=== PATIENT | male | born 1985 | race Caucasian/White ===

== ENCOUNTER 2019-11-13 20:08 | Emergency (ER) | payer BC, SELFPAY ==
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
[2019-11-13 20:22] VITALS: BP 129/84; PULSE 110; RESP 20; TEMP 36.7; O2SAT 99
[2019-11-13] MEDS: KETOROLAC (*BKC) 60 MG/2 ML VIAL IM (20:36)
--- NOTE | 2019-11-13 20:54 | PC.NURSE ---
Pt states he is unable to provide urine sample at this time.
== END 2019-11-13 21:25 | disposition home or self-care (01) ==
PROVIDERS: Emergency Provider Emergency Medicine; PCP Family Medicine
DX: S39.012A Strain of muscle, fascia and tendon of lower back, initial encounter (principal); S30.0XXA Contusion of lower back and pelvis, initial encounter; S50.812A Abrasion of left forearm, initial encounter; V28.4XXA Motorcycle driver injured in noncollision transport accident in traffic accident, initial encounter
CPT/HCPCS: 72131; 72192; 96372; 99283; 99284; J1885

== ENCOUNTER 2023-12-18 21:25 | Emergency (ER) | payer OTHER, SELFPAY ==
[2023-12-18 21:30] VITALS: BP 125/66; PULSE 139; RESP 20; TEMP 36.8; O2SAT 93
--- NOTE | 2023-12-18 21:44 | ED.WOUNDLAC ---
HPI - Wound/Laceration General Chief Complaint: Animal Bite Stated Complaint: HORNET STINGS Time Seen by Provider: 12/18/23 21:32 Source: patient Mode of arrival: ambulatory Limitations: no limitations History of Present Illness HPI narrative: this is a 38-year-old male who presents with multiple hornet bites and has an area of swelling and erythema on his right thigh area with no wheezing no shortness of breath no fever chills no nausea vomiting or abdominal pain. Onset (ago): hour(s) Extremity Location: Right: thigh ( insect bite) Context: accidental Related Data Home Medications Medication Instructions Recorded Confirmed apixaban 5 mg tablet (Eliquis) 5 mg PO DAILY 12/18/23 12/18/23 atorvastatin 80 mg tablet 80 mg PO DAILY 12/18/23 12/18/23 dofetilide 500 mcg capsule 500 mcg PO BID 12/18/23 12/18/23 ergocalciferol (vitamin D2) 1,250 1,250 mcg PO DAILY 12/18/23 12/18/23 mcg (50,000 unit) capsule fluticasone propionate 50 1 inh inhalation BID 12/18/23 12/18/23 mcg/actuation blister powder for inhalation folic acid 1 mg tablet 1 mg PO DAILY 12/18/23 12/18/23 furosemide 20 mg tablet 20 mg PO DAILY 12/18/23 12/18/23 liraglutide 0.6 mg/0.1 mL (18 mg/3 1.2 mg subcut DAILY 12/18/23 12/18/23 mL) subcutaneous pen injector (MixCommercetoza 2-Hima) metoprolol succinate 25 mg 25 mg PO DAILY 12/18/23 12/18/23 tablet,extended release 24 hr potassium chloride 20 mEq 20 meq PO BID 12/18/23 12/18/23 tablet,extended release(part/cryst) sacubitril 49 mg-valsartan 51 mg 1 tablet PO BID 12/18/23 12/18/23 tablet (Entresto) Allergies Allergy/AdvReac Type Severity Reaction Status Date / Time codeine Allergy Unknown Verified 11/13/19 20:29 Review of Systems Review of Systems: All systems reviewed & are unremarkable except as noted in HPI and below PMFSH Past Medical History Medical History Afib Social History Social History Smoking status: Never smoker Alcohol intake: current Alcohol use details: socially Substance use: never Living arrangements: with family 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 Exam Const: General: healthy appearing and no acute distress Nutritional Appearance: well nourished Orientation/consciousness: patient oriented x3 Limitations: no limitations Neck: Neck: normal visual inspection, no lymphadenopathy and no meningeal signs Chest: Chest palpation & inspection: normal inspection of the chest Resp: Effort & Inspection: normal respiratory effort Auscultation: clear to auscultation bilaterally Cardio: Rate: regular rate Rhythm: regular rhythm GI: GI Palp: Yes Soft to palpation Auscultation: normal bowel sounds Skin: General skin exam: normal color Wounds: wounds noted Neuro: General: patient oriented x3 and moves all extremities Course Course Emergency Course: patient received 80mg IM Depo-Medrol otherwise there is no other symptoms no audible wheezing no shortness of breath no nausea vomiting. Critical Care Time Critical Care Time Critical Care Time: No Discharge Plan Discharge Clinical Impression: Insect bite Patient Disposition: Home, Self-Care Condition: Stable Instructions: Antibiotic Form, Insect Bite or Sting (ED) Additional Instructions: advised to take medication as prescribed and follow up with primary if symptoms persist or worsen. Prescriptions: New prednisone 20 mg tablet 20 mg PO DAILY 5 Days Qty: 5 0RF No Action hydrocodone-acetaminophen 5-325 mg tablet 1 tablet PO Q6H PRN (Reason: pain) Qty: 20 0RF (DME) walker Misc See Rx Instructions .ROUTE .MEDSUPPLY Qty: 1 0RF Rx Instructions: As directed fluticasone propionate [Flovent Diskus] 50 mcg/actuation blister with device 1 inh INHALATION BID atorvastatin 80 mg tablet 80 mg PO DAILY potassium chloride 20 mEq
[2023-12-18] MEDS: methylPREDNISolone ACETATE 40 MG/ML VIAL 80 MG IM (21:48)
[2023-12-18 22:00] VITALS: BP 122/44; PULSE 138; RESP 20; O2SAT 93
== END 2023-12-18 22:30 | disposition home or self-care (01) ==
PROVIDERS: Emergency Provider Emergency Medicine; PCP Family Medicine
DX: T63.451A Toxic effect of venom of hornets, accidental (unintentional), initial encounter (principal); I48.91 Unspecified atrial fibrillation; Z79.01 Long term (current) use of anticoagulants; Z79.899 Other long term (current) drug therapy
CPT/HCPCS: 96372; 99283; J1010

== ENCOUNTER 2025-02-25 22:08 | Emergency (ER) | payer OTHER, SELFPAY ==
[2025-02-25] VITALS (14 sets, daily range): BP systolic 136–148; BP diastolic 65–80; PULSE 59–75; RESP 16–24; TEMP 36.2; O2SAT 94–100
--- OUTSIDE RECORDS SUMMARY | 2025-02-25 22:13 | XMS_ITS | Encounter Summary ---
Author Organization [facility] Address [address] [place] [address] Phone Care Team Providers Care Child Nutrition Manager Name Role Phone Galen Morales MD Primary Care Provider [phone] Encounter Details Date Type Department Care Team (Latest Contact Info) Description 07/12/2020 Orders Only [facility] Scanning, Provider Social History Tobacco Use Types Packs/Day Years Used Date Smoking Tobacco: Never Assessed Sex and Gender Information Value Date Recorded Sex Assigned at Not on file Legal Sex Male 3:11 PM CDT Gender Identity Not on file Sexual Orientation Not on file documented as of this encounter Plan of Treatment Not on file documented as of this encounter Procedures Procedure Name Priority Date/Time Associated Diagnosis Comments CARDIOLOGY DOCUMENT SCAN 07/11/2020 documented in this encounter Results * SCAN - CARDIOLOGY (07/11/2020) Anatomical Region Laterality Modality Other us Provider Scanning CV CARDIAC SERVICES PROCEDURES Edited Result - Final documented in this encounter Visit Diagnoses Not on filedocumented in this encounter Care Teams Child Nutrition Manager Relationship Specialty Start Date End Date Galen Morales MD [address] [facility] [place] [address] PCP - General Family Medicine 11/15/20 documented as of this encounter
--- OUTSIDE RECORDS SUMMARY | 2025-02-25 22:13 | XMS_ITS | Encounter Summary ---
Author Organization [facility] Address [address] [place] [address] Care Team Providers Care Window Installer Name Role Phone Galen Morales MD Primary Care Provider [phone] Imani Espitia MD Unavailable Joe Adair MD Unavailable [phone] Dorita Carter PA-C Unavailable [phone] Encounter Details Date Type Department Care Team (Latest Contact Info) Description 11/30/2023 Explorra Message Enc [facility] [address] [place] [address] [facility] followup call Social History Tobacco Use Types Packs/Day Years Used Date Smoking Tobacco: Never Smokeless Tobacco: Never Alcohol Use Standard Drinks/Week Comments Not Currently 194.7 (1 standard drink = 0.6 oz pure alcohol) [facility] Utilities Answer Date Recorded In the past 12 months has [facility] [employer], gas, oil, or water [employer] threatened to shut off services in your home? No 11/25/2023 Humiliation, Afraid, Rape, and Kick questionnair e Answer Date Recorded Within the last year, have y ou been afraid of your partner or ex-partner? No 11/25/2023 Within the last year, have y ou been humiliated or emotionally abused in other ways by your partner or ex-partner? No Within the last year, have y ou been kicked, hit, slapped, or otherwise physically hurt by your partner or ex-partner? No 11/25/2023 Within the last year, have y ou been raped or forced to have any kind of sexual activity by your partner or ex-partner? No 11/25/2023 Overall Financial Resource Strain (CARDIA) Answe r Date Recorded How hard is it for you to pa y for the very basics like food, housing, medical care, and heating? Not hard at all 11/25/2023 Hunger Vital Sign Answer Date Recorded Within the past 12 months, y ou worried that your food would run out before you got the money to buy more. Never true 11/25/19 24 Within the past 12 months, t he food you bought just didn't last and you didn't have money to get more. Never true 11/25/2023 PRAPARE - Transportation Answer Date Re corded In the past 12 months, has l ack of transportation kept you from medical appointments or from getting medications? No 11/12 In the past 12 months, has l ack of transportation kept you from meetings, work, or from getting things needed for daily living? No 11/25/2023 Housing Stability Vital Sign Answer Yuniel e Recorded In the last 12 months, was t here a time when you were not able to pay the mortgage or rent on time? No 11/25/2023 In the past 12 months, how m any times have you moved where you were living? 0 11/25/2023 At any time in the past 12 m [facility], were you homeless or living in a [facility] (including now)? No 11/25/2023 Sex and Gender Information Value Date Recorded Sex Assigned at Male 07/20/2024 1:07 PM TREE CLIMBER Legal Sex Male 4:30 PM CDT Gender Identity Not on file Sexual Orientation Not on file documented as of this encounter Functional Status * Are you deaf or do you have serious difficulty hearing Answer Date of Assessment Author Status No 11/25/2023 2:00 AM CDT Adriana Brown RN Active * Are you blind or do you have serious difficulty seeing, even when wearing glasses? Answer Date of Assessment Author Status No 11/25/2023 2:00 AM SKYLART Adriana Brown RN Active * Do you have serious difficulty walking or climbing stairs? Answer Date of Assessment Author Status Yes 11/25/2023 2:00 AM SKYLARAdriana Leslie RN Active * Do you have difficulty dressing or bathing? Answer Date of Assessment Author Status No 11/25/2023 2:00 AM Adriana Felix RN Active * Because of a physical, mental, or emotional condition, do you have difficulty doing errands alone such as visiting a doctor's office or shopping? Answer Date of Assessment Author Status No 11/25/2023 2:00 AM Adriana Felix RN Active documented as of this encounter Mental Status * Because of a physical, mental, or emotional condition, do you have serious difficulty concentrating, remembering, or making decisions? Answer Entry Date Author Status No 11/25/2023 2:00 AM Adriana Felix RN Active documented in this encounter Plan of Treatment Upcoming Encounters Date Type Department Care Team (Late st Contact Info) Description 04/18/2025 9:00 AM TREE CLIMBER Office Visit [facility] [address] [place] [phone] Imani Espitia MD [address] [place] [address] [phone] documented as of this encounter Visit Diagnoses Not on filedocumented in this encounter Care Teams Window Installer Relationship Specialty Start Date End Date Galen Morales MD [address] [place] [address] PCP - General FAMILY PRACTICE 05/20/20 Imani Espitia MD [address] [place] [address] [phone] Consulting Physician CARDIOVASCULAR DISEASE 06/21/20 Joe Adair MD [address] [place] [address] [phone] Consulting Physician CLINICAL CARDIAC ELECTROPHYSIOLOGY 11/29/23 Dorita Carter PA-C [address] [place] [id number] Referring Physician PHYSICIAN SEISMOGRAPH RECORDER 11/29/23 documented as of this encounter
--- OUTSIDE RECORDS SUMMARY | 2025-02-25 22:13 | XMS_ITS | Encounter Summary ---
Author Organization [facility] Address [address] [place] [address] Phone Care Team Providers Care Refrigerator Tester Name Role Phone Galen Morales MD Primary Care Provider [phone] Encounter Details Date Type Department Care Team (Latest Contact Info) Description 07/13/2020 Orders Only [facility] Scanning, Provider [...] Date/Time Associated Diagnosis Comments CARDIOLOGY DOCUMENT SCAN 07/13/2020 documented in this encounter Results * SCAN - CARDIOLOGY (07/13/2020) Anatomical Region Laterality Modality Other us Provider Scanning CV CARDIAC SERVICES PROCEDURES Final Result documented in this encounter Visit Diagnoses Not on filedocumented in this encounter Care Teams Refrigerator Tester Relationship Specialty Start Date End Date Galen Morales MD [address] [place] [address] [place] [id number] PCP - General Family Medicine 11/15/20 documented as of this encounter
--- OUTSIDE RECORDS SUMMARY | 2025-02-25 22:13 | XMS_ITS | Encounter Summary ---
Author Organization [facility] Address [address] [place] [address] Phone Care Team Providers Care Tuber Operator Name Role Phone Galen Morales MD Primary Care Provider [phone] Encounter Details Date Type Department Care Team (Latest Contact Info) Description 07/17/2020 Orders Only [facility] Scanning, Provider [...] Date/Time Associated Diagnosis Comments CARDIOLOGY DOCUMENT SCAN 07/17/2020 documented in this encounter Results * SCAN - CARDIOLOGY (07/17/2020) Anatomical Region Laterality Modality Other us Provider Scanning CV CARDIAC SERVICES PROCEDURES Final Result documented in this encounter Visit Diagnoses Not on filedocumented in this encounter Care Teams Tuber Operator Relationship Specialty Start Date End Date Galen Morales MD [address] [place] [address] [place] [id number] PCP - General Family Medicine 11/15/20 documented as of this encounter
--- OUTSIDE RECORDS SUMMARY | 2025-02-25 22:13 | XMS_ITS | Encounter Summary ---
Author Organization [facility] Address [facility] [place] [address] Care Team Providers Care Test Development Engineer Name Role Phone Galen Morales MD Primary Care Provider [phone] Imani Espitia MD Unavailable Joe Adair MD Unavailable [phone] Dorita Carter PA-C Unavailable [phone] Encounter Details Date Type Department Care Team (Late st Contact Info) Description 12/13/2024 Business Texter Message Enc [facility] ield [address] [place] [address] [facility] Provider Test results Social History Tobacco Use Types Packs/Day Years Used Date Smoking Tobacco: Never Smokeless Tobacco: Never Alcohol Use Standard Drinks/Week Comments Not Currently 194.7 (1 standard drink = 0.6 oz pure alcohol) [facility] Utilities Answer Date Recorded In the past 12 months has [facility] [employer] gas, oil, or water [employer] threatened to shut off services in your [...] any time in the past 12 m [facility], were you homeless or living in a halfway (including now)? No 11/25/2023 Sex and Gender Information Value Date Recorded Sex Assigned at Male 07/20/2024 1:07 PM TIN RECOVERY WORKER Legal Sex Male 4:30 PM CDT Gender Identity Not on file Sexual Orientation Not on file documented as of this encounter Functional Status * Are you deaf or do you have serious difficulty hearing Answer Date of Assessment Author Status No 11/25/2023 2:00 AM SKYLART Adriana Brown RN Active * Are you blind or do you have serious difficulty seeing, even when wearing glasses? Answer Date of Assessment Author Status No 11/25/2023 2:00 AM SKYLART Adriana Brown RN Active * Do you have serious difficulty walking or climbing stairs? Answer Date of Assessment Author Status Yes 11/25/2023 2:00 AM Adriana Felix RN Active * Do you have difficulty [...] st Contact Info) Description 04/18/2025 9:00 AM TIN RECOVERY WORKER Office Visit [facility] [address] [place] [phone] Imani Espitia MD [address] [place] [address] [phone] documented as of this encounter Visit Diagnoses Not on filedocumented in this encounter Care Teams Test Development Engineer Relationship Specialty Start Date End Date Galen Morales MD [address] [place] [address] PCP - General FAMILY PRACTICE 05/20/20 Imani Espitia MD [address] [place] [address] [phone] Consulting Physician CARDIOVASCULAR DISEASE 06/21/20 Joe Adair MD [address] [place] [address] [phone] Consulting Physician CLINICAL CARDIAC ELECTROPHYSIOLOGY 11/29/23 Dorita Carter PA-C [address] [place] [phone] Referring Physician PHYSICIAN STUDENT LIFE ADVISOR 11/29/23 documented as of this encounter
--- OUTSIDE RECORDS SUMMARY | 2025-02-25 22:13 | XMS_ITS | Encounter Summary ---
Author Organization [facility] Address [address] [place] [address] Phone Care Team Providers Care Senior National Account Manager Name Role Phone Galen Morales MD Primary Care Provider [phone] Encounter Details Date Type Department Care Team (Latest Contact Info) Description 07/16/2020 Orders Only [facility] Scanning, Provider [...] Date/Time Associated Diagnosis Comments CARDIOLOGY DOCUMENT SCAN 07/16/2020 documented in this encounter Results * SCAN - CARDIOLOGY (07/16/2020) Anatomical Region Laterality Modality Other us Provider Scanning CV CARDIAC SERVICES PROCEDURES Edited Result - Final documented in this encounter Visit Diagnoses Not on filedocumented in this encounter Care Teams Senior National Account Manager Relationship Specialty Start Date End Date Galen Morales MD [address] [facility] [place] [address] PCP - General Family Medicine 11/15/20 documented as of this encounter
--- OUTSIDE RECORDS SUMMARY | 2025-02-25 22:13 | XMS_ITS | Encounter Summary ---
Author Organization [facility] Address [facility] [place] [address] Care Team Providers Care Java Grails Developer Name Role Phone Galen Morales MD Primary Care Provider Imani Espitia MD Unavailable Imani Espitia MD Unavailable Joe Adair MD Unavailable [phone] Dorita Carter PA-C Unavailable [phone] Encounter Details Date Type Department Care Team (Late st Contact Info) Description 11/19/2018 Abstract SFL CONVERSION [address] [place], [place] [id number] , Generic ConversionMD Social History Tobacco Use Types Packs/Day Years Used Date Smoking Tobacco: Never Assessed Sex and Gender Information Value Date Recorded Sex Assigned at Male 07/20/2024 1:07 PM GRIP WRAPPER Legal Sex Male 4:30 PM CDT Gender Identity Not on file Sexual Orientation Not on file documented as of this encounter Plan of Treatment Upcoming Encounters Date Type Department Care Team (Late st Contact Info) Description 04/18/2025 9:00 AM GRIP WRAPPER Office Visit [facility] [address] [place] [address] Imani Espitia MD [address] [place] [address] documented as of this encounter Visit Diagnoses Not on filedocumented in this encounter Additional Health Concerns Infection Onset Date Last Indicated Resolved Time COVID-19 Rule Out 07/06/2020 07/06/2020 07/07/2020 3:02 PM GRIP WRAPPER documented as of this encounter Care Teams Java Grails Developer Relationship Specialty Start Date End Date Galen Morales MD [address] [place] [address] PCP - General FAMILY PRACTICE 05/20/20 Imani Espitia MD [address] [place] [address] Consulting Physician CARDIOVASCULAR DISEASE 05/23/20 1 07/24/19 Imani Espitia MD [address] [place] [address] Consulting Physician CARDIOVASCULAR DISEASE 06/21/20 Joe Adair MD [address] [place] [address] Consulting Physician CLINICAL CARDIAC ELECTROPHYSIOLOGY 11/29/23 Dorita Carter PA-C [address] [place], [place] [phone] Referring Physician PHYSICIAN INFRASTRUCTURE SOLUTIONS ARCHITECT 11/29/23 documented as of this encounter
--- OUTSIDE RECORDS SUMMARY | 2025-02-25 22:13 | XMS_ITS | Encounter Summary ---
Author Organization [facility] Address [address] [place] [address] Phone Care Team Providers Care Electronics Scale Tester Name Role Phone Galen Morales MD Primary Care Provider [phone] Encounter Details Date Type Department Care Team (Latest Contact Info) Description 08/19/2020 Orders Only [facility] Scanning, Provider [...] Date/Time Associated Diagnosis Comments CARDIOLOGY DOCUMENT SCAN 08/19/2020 documented in this encounter Results * SCAN - CARDIOLOGY (08/19/2020) Anatomical Region Laterality Modality Other us Provider Scanning CV CARDIAC SERVICES PROCEDURES Final Result documented in this encounter Visit Diagnoses Not on filedocumented in this encounter Care Teams Electronics Scale Tester Relationship Specialty Start Date End Date Galen Morales MD [address] [place] [address] [place] [address] PCP - General Family Medicine 11/15/20 documented as of this encounter
--- OUTSIDE RECORDS SUMMARY | 2025-02-25 22:13 | XMS_ITS | Clinical Summary ---
Author Organization [facility] [employer] Address [address] [place] [address] Care Team Providers Care Hospital Secretary Name Role Phone Galen Morales MD Primary Care Provider Source Comments [facility] [employer],non-owned Affiliates and Associated Physician Practices is amultiple site organization consisting of ambulatory clinics and hospital sitesin [place], [place], [place] and [place]. This disclosure is being madepursuant to the Care Everywhere program and may not contain all information available regarding this patient. Last updated 18.[facility] [employer] Allergies No known active allergies Medications * Be aware that medications may not be up to date on this document. Alwaysverify current medications with the patient. acetaminophen (Tylenol) 325 MG tabletIndicati ons:Pain Take 2 (two) tablets by mouth every 4 hours as needed Maximum allowable Acetaminophen amount = 4 Grams (4000 mg) / 24 hours. Reasons: Pain 4 Active apixaban (Eliquis) 5 MG tablet Take 1 (one) tablet by mouth 2 times daily 30 tablet 4 Active traZODone (Desyrel) 50 MG tablet Take 1 (one) tablet by mouth at bedtime 30 tablet 4 Active dulaglutide (Trulicity) 3 MG/0.5ML injection Inject 3 (three) mg subcutaneously every 7 days for 30 days 2 mL 4 Active empagliflozin (Jardiance) 10 MG tablet Take 1 (one) tablet by mouth once daily 30 tablet 4 Active atorvastatin (Lipitor) 80 MG tablet Take 1 (one) tablet by mouth at bedtime 30 tablet 4 Active ARIPiprazole (Abilify) 15 MG tablet Take 1 (one) tablet by mouth at bedtime 30 tablet 4 Active metoprolol succinate XL 24hr (Toprol XL) 50 MG tablet Take 1 (one) tablet by mouth once daily 30 tablet 4 Active sacubitril-alison sartan (Entresto) 49-51 MG tablet Take 1 (one) tablet by mouth 2 times daily 60 tablet 4 Active furosemide (Lasix) 40 MG tablet Take 1 (one) tablet by mouth 2 times daily 60 tablet 4 Active folic acid (Folvite) 1 MG tablet Take 1 (one) tablet by mouth once daily 30 tablet 4 Active thiamine (Vitamin B-1) 100 MG tablet Take 1 (one) tablet by mouth once daily 30 tablet 4 Active Active Problems Problem Noted Date Diagnosed Date Atrial fibrillation, rapid 10/22/2023 Social History Tobacco Use Types Packs/Day Years Used Date Smoking Tobacco: Never Assessed Sex and Gender Information Value Date Recorded Sex Assigned at Not on file Legal Sex Male 11:21 AM CDT Gender Identity Not on file Sexual Orientation Not on file Last Filed Vital Signs Vital Sign Reading Time Taken Comments Blood Pressure 106/67 10/26/2023 11:10 AM CDT Pulse 130 10/26/2023 12:53 PM CDT pt assessed while walking Temperature 36.7 C (98.1 F) 10/26/2023 11:10 AM CDT Respiratory Rate 18 10/26/2023 11:1 0 AM CDT Oxygen Saturation 97% 10/26/2023 12: 53 PM CDT Inhaled Oxygen Concentration - - Weight 239 kg (527 lb) 10/25/2023 11:06 AM CDT Height 188 cm (6' 2) 10/25/2023 11:06 AM CDT Body Mass Index 67.66 10/25/2023 11:06 AM CDT Plan of Treatment Health Maintenance Due Date Last Done Comments HIV SCREENING 02/15/1999 HEPATITIS C SCREENING 02/11/2002 DTAP/TDAP/TD VACCINES (1 - Tdap) 02/15/2003 HEPATITIS B VACCINE (1 of 3 - 19+ 3-dose series) 02/15/2003 HPV VACCINE (1 - 3-dose SCDM series) 02/15/2011 DEPRESSION SCREENING 06/14/2024 COVID-19 VACCINE (1 2023-2 5 season) 2025 INFLUENZA VACCINE (#1) 2025 ZOSTER VACCINE (1 of 2) 02/15/2034 HIB VACCINE Aged Out No longer eligi ble based on patient's age to complete this topic MENINGOCOCCAL (Group B) VACC INE SHARED DECISION-MAKING Aged Out No longer eligibl e based on patient's age to complete this topic MENINGOCOCCAL GROUPS A/C/Y/W VACCINE Aged Out No longer eligible b ased on patient's age to complete this topic PNEUMOCOCCAL VACCINE Aged Out No long er eligible based on patient's age to complete this topic Insurance [facility] Advance Directives * Full Code (Latest Code Status on File) Date Activated Date Inactivated Comments 10/22/2023 2:52 PM 10/26/2023 3:27 PM Care Teams Hospital Secretary Relationship Specialty Start Date End Date Galen Morales MD [address] [place] [address] PCP - General Family Medicine 10/26/23
--- OUTSIDE RECORDS SUMMARY | 2025-02-25 22:13 | XMS_ITS | Encounter Summary ---
Author Organization [facility] Address [address] [place] [address] Phone Care Team Providers Care Fence Repairman Name Role Phone Galen Morales MD Primary Care Provider [phone] Encounter Details Date Type Department Care Team (Latest Contact Info) Description 07/11/2020 Orders Only [facility] Scanning, Provider [...] Procedure Name Priority Date/Time Associated Diagnosis Comments SCAN - RADIOLOGY/IMAGING 07/11/2020 documented in this encounter Results * SCAN - RADIOLOGY/IMAGING (07/11/2020) Anatomical Region Laterality Modality Other us Provider Scanning Final Result documented in this encounter Visit Diagnoses Not on filedocumented in this encounter Care Teams Fence Repairman Relationship Specialty Start Date End Date Galen Morales MD [address] [place] [address] [place] [address] PCP - General Family Medicine 11/15/20 documented as of this encounter
--- OUTSIDE RECORDS SUMMARY | 2025-02-25 22:13 | XMS_ITS | Encounter Summary ---
Author Organization [facility] Address [address] [place] [address] Phone Care Team Providers Care Crude Unit Operator Name Role Phone Galen Morales MD Primary Care Provider [phone] Encounter Details Date Type Department Care Team (Latest Contact Info) Description 07/23/2020 Orders Only [facility] Scanning, Provider [...] Priority Date/Time Associated Diagnosis Comments SCAN - LABS 07/23/2020 CARDIOLOGY DOCUMENT SCAN 07/23/2020 documented in this encounter Results * SCAN - LABS (07/23/2020) us Provider Scanning Final Result * SCAN - CARDIOLOGY (07/23/2020) Anatomical Region Laterality Modality Other us Provider Scanning CV CARDIAC SERVICES PROCEDURES Final Result documented in this encounter Visit Diagnoses Not on filedocumented in this encounter Care Teams Crude Unit Operator Relationship Specialty Start Date End Date Galen Morales MD [address] [facility] [place] [address] PCP - General Family Medicine 11/15/20 documented as of this encounter
--- OUTSIDE RECORDS SUMMARY | 2025-02-25 22:13 | XMS_ITS | Encounter Summary ---
Author Organization [facility] Address [address] [place] [address] Phone Care Team Providers Care Lift Team Technician Name Role Phone Galen Morales MD Primary Care Provider [phone] Encounter Details Date Type Department Care Team (Latest Contact Info) Description 07/14/2020 Orders Only [facility] Scanning, Provider [...] Date/Time Associated Diagnosis Comments CARDIOLOGY DOCUMENT SCAN 07/14/2020 documented in this encounter Results * SCAN - CARDIOLOGY (07/14/2020) Anatomical Region Laterality Modality Other us Provider Scanning CV CARDIAC SERVICES PROCEDURES Final Result documented in this encounter Visit Diagnoses Not on filedocumented in this encounter Care Teams Lift Team Technician Relationship Specialty Start Date End Date Galen Morales MD [address] [place] [address] [place] [address] PCP - General Family Medicine 11/15/20 documented as of this encounter
--- OUTSIDE RECORDS SUMMARY | 2025-02-25 22:13 | XMS_ITS | Encounter Summary ---
Author Organization [facility] Address [facility] [place] [address] Care Team Providers Care Band Machine Operator Name Role Phone Galen Morales MD Primary Care Provider [phone] Imani Espitia MD Unavailable Joe Adair MD Unavailable [phone] Dorita Carter PA-C Unavailable [phone] Encounter Details Date Type Department Care Team (Late st Contact Info) Description 11/30/2023 Hospital Follow-up Call [facility] [address] [place] [address] Mady Morales RN Social History Tobacco Use Types Packs/Day Years Used Date Smoking Tobacco: Never Smokeless Tobacco: Never Alcohol Use Standard Drinks/Week Comments Not Currently 194.7 (1 standard drink = 0.6 oz pure alcohol) [facility] Utilities Answer Date Recorded In the past 12 months has [facility] [employer], gas, oil, or water [employer] threatened to shut off services in your [...] any time in the past 12 m [facility], were you homeless or living in a long term (including now)? No 11/25/2023 Sex and Gender Information Value Date Recorded Sex Assigned at Male 07/20/2024 1:07 PM BESSEMER CONVERTER BLOWER Legal Sex Male 4:30 PM CDT Gender [...] Assessment Author Status Yes 11/25/2023 2:00 AM SKYLART Adriana Brown RN Active * Do you have difficulty [...] st Contact Info) Description 04/18/2025 9:00 AM BESSEMER CONVERTER BLOWER Office Visit [facility] [address] [place] [address] Imani Espitia MD [address] [place] [address] documented as of this encounter Visit Diagnoses Not on filedocumented in this encounter Care Teams Band Machine Operator Relationship Specialty Start Date End Date Galen Morales MD [address] [place] [phone] PCP - General FAMILY PRACTICE 05/20/20 Imani Espitia MD [address] [place] [address] Consulting Physician CARDIOVASCULAR DISEASE 06/21/20 Joe Adair MD [address] [place] [phone] Consulting Physician CLINICAL CARDIAC ELECTROPHYSIOLOGY 11/29/23 Dorita Carter PA-C [address] [place] [address] Referring Physician PHYSICIAN SENIOR AIR DIRECTOR 11/29/23 documented as of this encounter
--- OUTSIDE RECORDS SUMMARY | 2025-02-25 22:13 | XMS_ITS | Encounter Summary ---
Author Organization [facility] Address [facility] [place] [address] Care Team Providers Care Operations Team Leader Name Role Phone Galen Morales MD Primary Care Provider [phone] Imani Espitia MD Unavailable Joe Adair MD Unavailable [phone] Dorita Carter PA-C Unavailable [phone] Reason for Visit * Reason Onset Date Comments Holter Monitor 12/24/2023 Encounter Details Date Type Department Care Team (Late st Contact Info) Description 12/24/2023 Telephone [facility] [address] [place] [address] Joe Adair MD [address] [place] [address] Holter Monitor Social History Tobacco Use Types Packs/Day Years Used Date Smoking Tobacco: Never Smokeless Tobacco: Never Alcohol Use Standard Drinks/Week Comments Not Currently 194.7 (1 standard drink = 0.6 oz pure alcohol) [facility] Utilities Answer Date Recorded In the past 12 months has [facility] electric, gas, oil, or water company threatened to shut off services in your [...] any time in the past 12 m [facility], were you homeless or living in a snf (including now)? No 11/25/2023 Sex and Gender Information Value Date Recorded Sex Assigned at Male 07/20/2024 1:07 PM INDUSTRIAL SERVICE TECHNICIAN Legal Sex Male 4:30 PM CDT Gender [...] AM CDT Adriana Brown RN Active * Do you have serious difficulty walking or climbing stairs? Answer Date of Assessment Author Status Yes 11/25/2023 2:00 AM CDT Adriana Brown RN Active * Do you have difficulty dressing or bathing? Answer Date of Assessment Author Status No 11/25/2023 2:00 AM SKYLART Adriana Brown RN Active * Because of a physical, mental, or emotional condition, do you have difficulty doing errands alone such as visiting a doctor's office or shopping? Answer Date of Assessment Author Status No 11/25/2023 2:00 AM CDT Adriana Brown RN Active documented as of this encounter Mental Status * Because of a physical, mental, or emotional condition, do you have serious difficulty concentrating, remembering, or making decisions? Answer Entry Date Author Status No 11/25/2023 2:00 AM Adriana Felix RN Active documented in this encounter Progress Notes * Shawn Mcphersonician - 12/24/2023 12:14 PM CDT Images from the original note were not included. [employer] alerted us to two different events for the patient. Patient had a run of Atrial/ supraventricular tachycardia and a run of Ventricular tachycardia. No symptoms reported for either event. documented in this encounter Plan of Treatment Upcoming Encounters Date Type Department Care Team (Late st Contact Info) Description 04/18/2025 9:00 AM INDUSTRIAL SERVICE TECHNICIAN Office Visit [facility] [address] [place] [address] Imani Espitia MD [address] [place] [address] documented as of this encounter Visit Diagnoses Not on filedocumented in this encounter Care Teams Operations Team Leader Relationship Specialty Start Date End Date Galen Morales MD [address] [place] [phone] PCP - General FAMILY PRACTICE 05/20/20 Imani Espitia MD [address] [place], [place] [phone] Consulting Physician CARDIOVASCULAR DISEASE 06/21/20 Joe Adair MD [address] [place] [address] Consulting Physician CLINICAL CARDIAC ELECTROPHYSIOLOGY 11/29/23 Dorita Carter PA-C [address] [place], [place] [address] Referring Physician PHYSICIAN DRAWBRIDGE OPERATOR 11/29/23 documented as of this encounter
--- OUTSIDE RECORDS SUMMARY | 2025-02-25 22:13 | XMS_ITS | Clinical Summary ---
Author Organization [facility] Address [address] [place] [address] Care Team Providers Care Vice Chairman Name Role Phone Galen Morales MD Primary Care Provider [phone] Imani Espitia MD Unavailable Joe Adair MD Unavailable [phone] Dorita Carter PA-C Unavailable [phone] Allergies Active Allergy Reactions Criticality Noted Date Comments Shadi Siu High 05/20/2020 Liraglutide Other (see comment) 12/30/2023 Made my heart race Medications ENTRESTO 49-51 MG tablet Take 1 tablet by mouth 2 (two) times daily. 3 Active atorvastatin (LIPITOR) 80 MG tablet Take 1 tablet (80 mg total) by mouth nightly at bedtime. 3 Active folic acid (FOLVITE) 1 MG tablet Take 1 tablet (1 mg total) by mouth daily. 4 Active vitamin D2, ergocalciferol, (DRISDOL) 1.25 mg capsule Take 1 capsule (1.25 mg total) by mouth every 7 days. Takes on Tuesdays Active vitamin B-12 (CYANOCOBALAMIN) (CYANOCOBALAMIN) 1000 mcg tablet Take 1 tablet (1,000 mcg total) by mouth daily. Active furosemide (LASIX) 20 MG tablet Take 3 tablets (60 mg total) by mouth 2 (two) times daily. 90 tablet 1 4 Active potassium chloride CR (KLOR-CON M) 20 MEQ tablet Take 1 tablet (20 mEq total) by mouth 2 (two) times daily. 60 tablet 1 4 Active Torsemide 40 MG Tab Take 160 mg by mouth 2 (two) times a day. Active naloxone (NARCAN) 4 MG/0.1ML nasal spray CALL 911. ADMINISTER A SINGLE SPRAY INTRANASALLY INTO ONE NOSTRIL UPON SIGNS OF OPIOID OVERDOSE. MAY REPEAT AFTER 3 MINUTES IF NO RESPONSE. 4 Active meloxicam (MOBIC) 15 MG tablet TAKE 1 TABLET BY MOUTH ONCE DAILY WITH FOOD FOR BACK PAIN 4 Active hydrOXYzine (VISTARIL) 25 MG capsule TAKE 1 TO 2 CAPSULES BY MOUTH EVERY 8 HOURS NEEDED FOR ANXIETY MAY CAUSE DROWSINESS 4 Active albuterol sulfate HFA 108 (90 Base) MCG/ACT inhaler INHALE 2 PUFFS BY MOUTH EVERY 4 TO 6 HOURS NEEDED FOR COUGH, SHORTNESS OF BREATH OR WHEEZING 4 Active HYDROcodone-acet aminophen (NORCO) 10-325 MG tablet Take 1 tablet by mouth every 12 (twelve) hours as needed. 4 Active apixaban (ELIQUIS) 5 MG tabletIndication s:Persistent atrial fibrillation (CMS/HCC HHS/HCC),Atrial flutter, unspecified type (CMS/HCC HHS/HCC) Take 1 tablet (5 mg total) by mouth 2 (two) times daily. 60 tablet 11 4 Active metFORMIN ER (GLUCOPHAGE-XR) 500 MG 24 hr tablet TAKE 1 TABLET BY MOUTH ONCE DAILY BEFORE BREAKFAST FOR ONE MONTH, THEN BEFORE BREAKFAST AND SUPPER. 4 Active MOUNJARO 12.5 MG/0.5ML injection 4 Active metoprolol succinate ER (TOPROL-XL) 100 MG 24 hr tablet Take 1 tablet by mouth twice daily 60 tablet 11 5 Active SYMBICORT 160-4.5 MCG/ACT inhaler Inhale into the lungs every 12 (twelve) hours. 5 Active dofetilide (TIKOSYN) 500 MCG Cap capsule TAKE 1 CAPSULE BY MOUTH EVERY 12 HOURS 180 capsule 1 5 Active Active Problems Problem Noted Date Diagnosed Date Chronic anticoagulation 11/08/2024 Chronic hip pain, bilateral 09/18/2024 Lymphedema 03/16/2024 Atrial flutter, unspecified type ([facility]) 01/26/2024 HFrEF (heart failure with re duced ejection fraction) ([facility]) 04/11/2021 Obstructive sleep apnea syndrome 07/22/2020 History of alcoholism ([facility]) 07/22/19 21 Cardiomyopathy ([facility]) 07/16/2020 Orthopnea 07/16/2020 Edema 07/16/2020 Systolic heart failure ([facility]) 021 Moderate left ventricular systolic dysfunction 1 07/22/2019 Cardiac LV ejection fraction of 40-49% 0 Persistent atrial fibrillation ([facility]) 05/20/2020 Positive urine drug screen 05/20/2020 Morbid obesity 05/20/2020 Elevated brain natriuretic peptide (BNP) level 1 07/21/2019 Atrial fibrillation with rap id ventricular response ([facility]) 05/20/2020 Chronic alcohol use Resolved Problems Problem Noted Date Diagnosed Date Resolved Date A-fib ([facility]) 11/24/202310/13 Encounters Date Type Department Care Team Description 12/26/2024 Telephone [facility] [address] [place] [address] Joe Adair MD Medication 12/13/2024 My[facility]arm[facility]la Message Enc [facility] [address] [place] [address] [facility] Provider Test results 12/11/2024 10:00 AM CDT - 12/11/2024 11:59 PM CDT Hospital Encounter [facility] [address] [place] [address] Imani Espitia MD Discharge Disposition: Home or Self Care (Routine Discharge) 12/11/2024 Travel from Last 3 Months Family History Medical History Relation Comments Heart Disease Mother Heart Disease Paternal Grandfather Relation Status Comments Mother Paternal Grandfather Social History Tobacco Use Types Packs/Day Years Used Date Smoking Tobacco: Never Smokeless Tobacco: Never Tobacco Cessation:Counseling Given: Not Answered Alcohol Use Standard Drinks/Week Comments Not Currently 194.7 (1 standard drink = 0.6 oz pure alcohol) [facility] Utilities Answer Date Recorded In the past 12 months has th e electric, gas, oil, or water company threatened [...] any time in the past 12 m [facility], were you homeless or living in a jail (including now)? 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 Legal Sex Male 4:30 PM CDT Gender Identity Not on file Sexual Orientation Not on file Last Filed Vital Signs Vital Sign Reading Time Taken Comments Blood Pressure 130/78 11/08/2024 11:05 AM CDT Pulse 82 11/08/2024 11:05 AM CDT Temperature 36.8 C (98.2 F) 11/28/2023 12:14 PM CDT Respiratory Rate 18 11/08/2024 11:0 5 AM CDT Oxygen Saturation 96% 11/08/2024 11: 05 AM CDT Inhaled Oxygen Concentration - - Weight 218.7 kg (482 lb 3.2 oz) 025 11:05 AM CDT Height 188 cm (6' 2) 11/08/2024 11:05 AM CDT Body Mass Index 61.91 11/08/2024 11:05 AM CDT Plan of Treatment Upcoming Encounters Date Type Department Care Team (Late st Contact Info) Description 04/18/2025 9:00 AM ENVIRONMENTAL MANAGEMENT SPECIALIST Office Visit [facility] [place] [id number] Imani Espitia MD [address] [place] [address] Health Maintenance Due Date Last Done Comments Annual Physical 02/15/1987 Hepatitis C 02/15/2002 HPV Vaccines (1 - 3-dose SCD M series) 02/15/2011 Hepatitis B Vaccines (2 of 3 - Hep B Twinrix 3-dose series) 09/17/2024 08/20/2024 COVID-19 Vaccine (1 - 2023-2 5 season) 2025 DTaP, Tdap and Td Vaccines ( 2 - Td or Tdap) 08/13/2034 08/13/2024 Pneumococcal Vaccine: Pediat rics (0 to 5 Years) and At-Risk Patients (6 to 49 Years) Completed 08/13/2024 Meningococcal B Vaccine Aged Out No l onger eligible based on patient's age to complete this topic Meningococcal Vaccine Aged Out No teresa nandini eligible based on patient's age to complete this topic RSV Immunizations Under 20 Months Aged Out No longer eligible based on patient's age to complete this topic Procedures Procedure Name Priority Date/Time Associated Diagnosis Comments USE ECHOCARDIOGRAM Routine 12/11/2024 10 :55 AM CDT Persistent atrial fibrillation ([facility]HCC [facility]) from Last 3 Months Results * USE ECHOCARDIOGRAM (12/11/2024 10:55 AM CDT) Anatomical Region Laterality Modality Cardiac Ultrasound 12/11/2024 10:1 4 AM CDT Narrative 12/13/2024 8:49 AM CDT Echocardiography Report Pat.Name: Chandler Ordoñez Pat.ID: [id number] .Date: 12/11/2024 Refer.MD: Rere, [facility] Exam Time: 10:14:00 AM Study Type:[facility] Height: 74 in Weight: 480 lb BSA: 3.15 m2 Age: 9 1985,39Y Sex: M Sonogrphr: Nelida Pat. Stat.:Outpatient Reason for Study:Persistent atrial fibrillation, MR Procedures: Study performed at [facility], [place], [place] and interpreted by [facility]. 2D, M-mode, Doppler, Color Flow, Myocardial contrast was used to enhance endocardial definition. ++++++++++++++++++++++++++++++++++++ SUMMARY: ++++++++++++++++++++++++++++++++++++ Technically difficult study. The left ventricular size is normal. Estimated left ventricular ejection fraction is 50-55%. Wall motion appears normal in all segments. The right ventricular size is mild to moderately enlarged. Right ventricular systolic function is not assessable. Valves not well visualized. No significant valvular heart disease by spectral analysis. ++++++++++++++++++++++++++++++++++++ FINDINGS: ++++++++++++++++++++++++++++++++++++ LV: The left ventricular size is normal. The left ventricular systolic function is normal. Estimated left ventricular ejection fraction is 50-55%. There is no left ventricular hypertrophy. WM: Wall motion appears normal in all segments. RV: The right ventricular size is mild to moderately enlarged. Right ventricular systolic function is not assessable. The right ventricle not adequately visualized in all views. LA: The left atrial size is moderately enlarged. RA: Right atrial size is not assessable. SUSANA: No evidence of pericardial effusion. AO: Aortic root is mildly dilated. The sinus of Valsalva measures 3.6cm. PA: Unable to reliably quantitate pulmonary systolic pressure. SVn: Inferior vena cava is small. Other: Technically difficult exam due to body habitus. Transesophageal study may be indicated for further evaluation. AV: No evidence of aortic valve stenosis. No evidence of aortic regurgitation. The aortic valve not well visualized. MV: No evidence of significant mitral regurgitation. The mitral valve is not well visualized. PV: Pulmonic valve not well visualized. TV: The tricuspid valve is not well visualized. <Electronic Signature> 12/13/2024 08:49 AM Imani Espitia M.D. Procedure Note Imani Espitia MD - 12/13/2024 Echocardiography Report Pat.Name: Chandler Ordoñez Pat.ID: [id number] .Date: 12/11/2024 Refer.MD: Rere, [facility] Exam Time: 10:14:00 AM Study Type:[facility] Height: 74 in Weight: 480 lb BSA: 3.15 m2 Age: 9 1985,39Y Sex: M Sonogrphr: Sf Pat. Stat.:Outpatient Reason for Study:Persistent atrial fibrillation, MR Procedures: Study performed at [facility], [place], [place] and interpreted by [facility]. 2D, M-mode, Doppler, Color Flow, Myocardial contrast was used to enhance endocardial definition. ++++++++++++++++++++++++++++++++++++ SUMMARY: ++++++++++++++++++++++++++++++++++++ Technically difficult study. The left ventricular size is normal. Estimated left ventricular ejection fraction is 50-55%. Wall motion appears normal in all segments. The right ventricular size is mild to moderately enlarged. Right ventricular systolic function is not assessable. Valves not well visualized. No significant valvular heart disease by spectral analysis. ++++++++++++++++++++++++++++++++++++ FINDINGS: ++++++++++++++++++++++++++++++++++++ LV: The left ventricular size is normal. The left ventricular systolic function is normal. Estimated left ventricular ejection fraction is 50-55%. There is no left ventricular hypertrophy. WM: Wall motion appears normal in all segments. RV: The right ventricular size is mild to moderately enlarged. Right ventricular systolic function is not assessable. The right ventricle not adequately visualized in all views. LA: The left atrial size is moderately enlarged. RA: Right atrial size is not assessable. SUSANA: No evidence of pericardial effusion. AO: Aortic root is mildly dilated. The sinus of Valsalva measures 3.6cm. PA: Unable to reliably quantitate pulmonary systolic pressure. SVn: Inferior vena cava is small. Other: Technically difficult exam due to body habitus. Transesophageal study may be indicated for further evaluation. AV: No evidence of aortic valve stenosis. No evidence of aortic regurgitation. The aortic valve not well visualized. MV: No evidence of significant mitral regurgitation. The mitral valve is not well visualized. PV: Pulmonic valve not well visualized. TV: The tricuspid valve is not well visualized. <Electronic Signature> 12/13/2024 08:49 AM Imani Espitia M.D. Imani Espitia MD ECHO Final Result from Last 3 Months Insurance JOSE Advance Directives * Full Code (Latest Code Status on File) Date Activated Date Inactivated Comments 11/24/2023 6:03 PM 11/28/2023 3:16 PM * Full Code Date Activated Date Inactivated Comments 05/20/2020 11:14 AM 05/23/2020 3:14 PM Care Teams Vice Chairman Relationship Specialty Start Date End Date Galen Morales MD [address] [facility] [place] [address] PCP - General FAMILY PRACTICE 05/20/20 Imani Espitia MD [address] [place], [place] [phone] Consulting Physician CARDIOVASCULAR DISEASE 06/21/20 Joe Adair MD [address] [place] [address] [id number] Consulting Physician CLINICAL CARDIAC ELECTROPHYSIOLOGY 11/29/23 Dorita Carter PA-C [address] [place], [place] [address] Referring Physician PHYSICIAN AUTOMATION CONTROLS ENGINEER 11/29/23
--- OUTSIDE RECORDS SUMMARY | 2025-02-25 22:14 | XMS_ITS | Clinical Summary ---
Author Organization [place] [id number] [facility] Address [address] [place] [address] Care Team Providers Care Auxiliary Equipment Operator Name Role Phone Galen Morales MD Primary Care Provider [phone] Allergies Active Allergy Reactions Criticality Noted Date Comments Codeine Hives High 05/20/2020 Medications metoprolol XL (TOPROL-XL) 25 mg extended release tablet 11/12/2020 Acti ve apixaban (ELIQUIS) 5 mg tablet Take 1 tablet (5 mg total) by mouth 2 (two) times a day 05/23/2020 Active atorvastatin (LIPITOR) 40 mg tablet Take 2 tablets (80 mg total) by mouth daily Active HYDROcodone-shannon taminophen (NORCO) 5-325 mg per tablet 10/13/2022 Activ e torsemide (DEMADEX) 20 mg tablet Take 1 tablet (20 mg total) by mouth 2 (two) times a day 60 tablet 11/08/2022 Active sacubitriL-vals desiree (ENTRESTO) 49-51 mg tabletIndicatio ns:chronic heart failure Take 1 tablet by mouth 2 (two) times a day 60 tablet 11/08/2022 Active spironolactone (ALDACTONE) 25 mg tablet Take 0.5 tablets (12.5 mg total) by mouth daily 15 tablet 11/09/2022 Active Trulicity 3 mg/0.5 mL pen injector 01/27/2023 Active Active Problems Problem Noted Date Diagnosed Date Heart failure 11/03/2022 HFrEF (heart failure with reduced ejection fract ion) 04/11/2021 History of alcoholism 07/22/2020 Obstructive sleep apnea syndrome 07/22/2020 Cardiac LV ejection fraction of 40-49% 0 Atrial fibrillation with rapid ventricular respo nse 05/20/2020 Morbid obesity 05/20/2020 Medical History Medical History Date Comments CHF (congestive heart failure) (HCC) Covid A-fib (HCC) Arthritis Joint pain Low back pain Morbid obesity (HCC) Sleep apnea Diabetes mellitus (HCC) Type 2 diabetes mellitus Family History Medical History Relation Name Comments Heart disease Mother Dayna Heart attack Paternal Grandmother Mady Relation Name Status Comments Father Alive Mother Dayna Alive Paternal Grandmother Mady Social History Tobacco Use Types Packs/Day Years Used Date Smoking Tobacco: Never AUDIT-C Answer Date Recorded Frequency of Alcohol Consumption Not on file 02/04/2023 Q2: How many drinks containi ng alcohol do you have on a typical day when you are drinking? Patient does not drink Frequency of Binge Drinking Not on file 01/13 Personal Safety Answer Date Recorded Getting School Help Needed Not on file 11/26 Sex and Gender Information Value Date Recorded Sex Assigned at Not on file Legal Sex Male 3:11 PM CDT Gender Identity Not on file Sexual Orientation Not on file Obstetrics History Last Filed Vital Signs Vital Sign Reading Time Taken Comments Blood Pressure 150/76 02/04/2023 8:45 AM CDT Pulse 79 11/08/2022 12:18 PM CDT Temperature 37.1 C (98.8 F) 11/08/2022 12:18 PM CDT Respiratory Rate 16 11/08/2022 12:1 8 PM CDT Oxygen Saturation 96% 11/08/2022 12: 18 PM CDT Inhaled Oxygen Concentration - - Weight 238.2 kg (525 lb 3.2 oz) 02/04/2023 8:45 AM CDT Height 188 cm (6' 2) 02/04/2023 8:45 AM CDT Body Mass Index 67.43 02/04/2023 8:45 AM CDT Plan of Treatment Health Maintenance Due Date Last Done Comments Depression Screening 1985 Hepatitis C Screening 1985 DTaP/Tdap/Td Vaccine (1 - Tdap) 02/15/1995 Varicella Vaccines (1 of 2 - 13+ 2-dose series) 02/15/1997 Hepatitis B Screening 02/15/2002 Regular Well Visit/Exam 18-64 02/15/2002 HPV Vaccines (1 - 3-dose SCD M series) 02/15/2011 Influenza Vaccine (#1) 2025 Pneumococcal vaccine <65 Aged Out No longer eligible based on patient's age to complete this topic Insurance [facility] Advance Directives For more information, please contact: [phone] * Full Code (Latest Code Status on File) Date Activated Date Inactivated Comments 11/04/2022 12:13 AM 11/08/2022 8:46 PM Care Teams Auxiliary Equipment Operator Relationship Specialty Start Date End Date Galen Morales MD [address] [place] [address] [place] [address] PCP - General Family Medicine 11/15/20
--- NOTE | 2025-02-25 22:18 | ED_ITS ---
HPI - General Adult General Chief complaint: Overdose Stated complaint: check bp Time Seen by Provider: 02/25/25 22:13 Source: patient Mode of arrival: ambulatory Limitations: no limitations History of Present Illness HPI narrative: 40-year-old male with a history of dyslipidemia, asthma, GLADYS on CPAP, diabetes mellitus, lymphedema both lower extremities, hypertension, CHF, atrial fibrillation on Entresto, Dofetilide, , Lasix, metoprolol and Eliquis presented to the ED -- patient took an extra dose of Dofetilide at 9:30 p.m. Patient is asymptomatic. Patient normally takes 500 mg twice a day. Today took total 3 tablets. Patient denied any chest pain or shortness of breath. No dizziness or lightheadedness he had an EKG which revealed a heart rate of 69 and a QTC of 430. Associated symptoms: other ( Chronic leg swelling) Treatments prior to arrival: none Related Data Home Medications ?Medication ?Instructions ?Recorded ?Confirmed ?Last Taken ?Type apixaban 5 mg tablet (Eliquis) 5 mg PO DAILY 12/18/23 12/18/23 12/18/23 History atorvastatin 80 mg tablet 80 mg PO DAILY 12/18/2312/0512/18/23 History dofetilide 500 mcg capsule 500 mcg PO BID 12/18/2312/0512/18/23 History ergocalciferol (vitamin D2) 1,250 1,250 mcg PO DAILY 0 12/18/23 12/18/23 12/18/23 History mcg (50,000 unit) capsule fluticasone propionate 50 1 inh inhalation BID 4 12/18/23 12/18/23 History mcg/actuation blister powder for inhalation folic acid 1 mg tablet 1 mg PO DAILY 12/18/2312/1712/18/23 History furosemide 20 mg tablet 20 mg PO DAILY 12/18/2312/0512/18/23 History liraglutide 0.6 mg/0.1 mL (18 mg/3 1.2 mg subcut DAILY 12/18/23 12/18/23 12/18/23 History mL) subcutaneous pen injector ([employer] 2-Hima) metoprolol succinate 25 mg 25 mg PO DAILY 07/06/24 07/ 06/24 07/06/24 History tablet,extended release 24 hr potassium chloride 20 mEq 20 meq PO BID 12/18/2312/1712/18/23 History tablet,extended release(part/cryst) sacubitril 49 mg-valsartan 51 mg 1 tablet PO BID 12/1712/18/23 12/18/23 History tablet (Entresto) Allergies Allergy/AdvReac Type Severity Reaction Status Date / Time codeine Allergy Unknown Verified 02/25/25 22:23 Review of Systems 2 Review of Systems: All systems reviewed & are unremarkable except as noted in HPI and below Constitutional: Constitutional: Reports as per HPI and Reports no additional constitutional complaints Eyes: Eyes: Reports as per HPI and Reports no additional eye complaints ENT: Reports system reviewed and no additional complaints, except as documented and Reports as per HPI Cardiovascular: Cardiovascular: Reports as per HPI and Reports no additional cardiovascular complaints Respiratory: Respiratory: Reports as per HPI and Reports no additional respiratory complaints Comments: Dyspnea on exertion. no paroxysmal nocturnal dyspnea Gastrointestinal: Gastrointestinal: Reports as per HPI and Reports no additional gastrointestinal complaints Genitourinary: Genitourinary: Reports no additional male genitourinary complaints and Reports as per HPI Musculoskeletal: Musculoskeletal: Reports no additional musculoskeletal complaints and Reports as per HPI Integumentary/Breasts: Skin/Breast: Reports system reviewed and no additional complaints, except as docu and Reports as per HPI Comments: bilateral legs have chronic venous Neurologic: Reports system reviewed and no additional complaints, except as documented Psychiatric: Psychiatric: Reports no additional psychiatric complaints and Reports as per HPI Endocrine: Endocrine: Reports no additional endocrine complaints and Reports as per HPI Hematologic/Lymphatic: Hematologic/Lymphatic: Reports no additional hematologic/lymphatic complaints and Reports as per HPI Allergic/Immunologic: Allergic/Immunologic: Reports no additional allergic/immunologic complaints and Reports as per HPI [facility] Past Medical History Medical History (Updated 02/26/25 @ 04:20 by Anthony Watson MD) Diabetes mellitus Dyslipidemia Asthma Lymphedema Hypertension CHF (congestive heart failure) Afib Social History Social History Smoking status: Never smoker Alcohol intake: current Alcohol use details: socially Substance use: never Substance use type: does not use Living arrangements: with family Additional occupation/education comments: [employer] Ex[employer] 2 Narrative: pulse is 72. Blood pressure 145/75. Const: General: healthy appearing and no acute distress O rientation/consciousness: patient oriented x3 Limitations: no limitations HENMT: Head: normal to inspection Ears: external ears normal F shannon/Nose/Sinus: Normal external nose present Face and sinus: normal facial exam Mouth: Yes Normal oral and palatal mucosa present Throat: posterior oropharynx normal Eyes: Conjunctivae: conjunctivae normal Pupils: Equal, round and reactive pupils present EOM: EOMs intact bilaterally Direct Ophthalmoscopy: no photophobia Neck: Neck: normal visual inspection, no lymphadenopathy and no meningeal signs Chest: Chest palpation & inspection: normal inspection of the chest Resp: Effort & Inspection: normal respiratory effort Auscultation: clear to auscultation bilaterally Cardio: Rate: regular rate Rhythm: regular rhythm Other: No gallop or murmur appreciated GI: Auscultation: normal bowel sounds Other: no tenderness/ rigidity /rebound. : General: Yes no CVA tenderness Back/Spine/Pelvis: Back: no CVA tenderness Skin: General skin exam: normal color Rashes: no rashes Wounds: no wounds Neuro: General: patient oriented x3, moves all extremities, no meningeal signs, no focal motor deficits and CN's II-XI intact bilaterally Cranial nerves: Yes Nystagmus not present Speech: normal speech Gait exam (Neuro): Normal gait present Extrem: General: normal to inspection and edema Psych: Mental Status: mental status grossly normal Affect: normal affect Attitude: cooperative Course Course Emergency Course: Compensated CHF Tikosyn overdose-- accidental QTC at 2216 was noted to be 419 milliseconds. Repeat EKG with QTC at 1:00 a.m. was noted to be 453 milliseconds. In view of the rising QTC will repeat an EKG repeat EKG it 4:00 a.m. normal sinus rhythm with first-degree AV block. QTC is noted to be [address] elevation noted. Discharge the patient home Vital Signs Vital signs: Vital Signs Pulse Rate 62 02/25/25 22:08 Respiratory Rate 20 02/25/25 22:08 Temperature 36.2 C L 02/25/25 22:25 Pulse Rate 68 02/26/25 04:08 Respiratory Rate 16 02/26/25 00:46 Blood Pressure 142/70 H 02/26/25 00:46 Pulse Oximetry 95 02/26/25 00:46 Oxygen Delivery Room Air 02/25/25 22:15 Medical Decision Making MDM Narrative Medical decision making narrative: compensated CHF Tikosyn overdose Vital Signs Vital Signs: Vital Signs Pulse Rate 62 02/25/25 22:08 Respiratory Rate 20 02/25/25 22:08 Temperature 36.2 C L 02/25/25 22:25 Pulse Rate 68 02/26/25 04:08 Respiratory Rate 16 02/26/25 00:46 Blood Pressure 142/70 H 02/26/25 00:46 Pulse Oximetry 95 02/26/25 00:46 Oxygen Delivery Room Air 02/25/25 22:15 Lab Data 02/25/25 22:57 02/25/25 22:57 Labs: Lab Results 02/25/25 Range/Units 22:57 WBC 5.8 (4.8-10.8) K/mm3 RBC 4.56 L (4.70-6.10) M/mm3 Hgb 13.3 L (14.0-18.0) g/dL Hct 42.0 (40.0-54.0) % MCV 92.1 (78.0-102.0) fL MCH 29.2 (27.0-31.0) pg MCHC 31.7 L (32-36) g/dL RDW 13.9 (11.6-14.4) % Plt Count 203 (150-420) K/mm3 MPV 9.8 (8.7-11.0) fl Immature Gran % (Auto) 0.5 H (0.0-0.0) % Neut % (Auto) 60.8 (50.0-70.0) % Lymph % (Auto) 27.3 (18.0-42.0) % [place] % (Auto) 7.1 (2.0-11.0) % Eos % (Auto) 4.0 (1.0-6.0) % Baso % (Auto) 0.3 (0.0-1.0) % Lymph # (Auto) 1.58 (1.10-4.50) K/mm3 [place] # (Auto) 0.41 (0.10-0.90) K/mm3 Eos # (Auto) 0.23 (0.02-0.50) K/mm3 Baso # (Auto) 0.02 (0.00-0.10) K/mm3 Abs Immat Gran (auto) 0.03 H (0.00-0.00) K/mm3 Absolute Neuts (auto) 3.52 (1.70-7.20) K/mm3 Absolute Nucleated RBC 0.00 (0.00-0.00) K/mm3 Nucleated RBC % 0.0 (0-0.0) % Sodium 141 (137-145) mmol/L Potassium 3.8 (3.4-5.0) mmol/L Chloride 102 (98-107) mmol/L Carbon Dioxide 30 (22-30) mmol/L Anion Gap 9 (4-12) mmol/L BUN 12 (9-20) mg/dL Creatinine 1.03 (0.7-1.3) mg/dL Estim Creat Clear Calc 158 ml/min Estimated GFR > 60 (59 - ) Glucose 101 (65-110) mg/dL Calculated Osmolality 291 (285-295) mOsm/kg Calcium 9.2 (8.4-10.2) mg/dL Magnesium 2.1 (1.6-2.3) mg/dL Total Bilirubin 0.6 (0.2-1.3) mg/dL AST 22 (17-59) U/L ALT 18 (6-50) U/L Alkaline Phosphatase 65 (38-126) U/L NT-Pro-B Natriuret Pep 54 (19.9-100) pg/mL Total Protein 8.5 H (6.3-8.2) g/dL Albumin 4.2 (3.5-5.1) g/dL ECG Data EKG #1: ECG completion date: 02/25/25 ECG completion time: 22:16 Interpretation: normal sinus rhythm. Normal axis. No ST -T-wave changes noted. Prolonged MD. QTC 430 Discharge Plan Discharge Clinical Impression: CHF (congestive heart failure) Qualifiers: Heart failure type: systolic Heart failure chronicity: chronic Qualified Code(s): I50.22 - Chronic systolic (congestive) heart failure Accidental overdose Qualifiers: Encounter type: initial encounter Qualified Code(s): T50.901A - Poisoning by unspecified drugs, medicaments and biological substances, accidental (unintentional), initial encounter Patient Disposition: Home Condition: Stable Instructions: Antibiotic Form, Heart Failure (ED) Patient Language: Bengali Prescriptions: No Action hydrocodone-acetaminophen 5-325 mg tablet 1 tablet PO Q6H PRN (Reason: pain) Qty: 20 [facility]RF [facility] Instructions .ROUTE .MEDSUPPLY Qty: 1 0RF Rx Instructions: As directed fluticasone propionate [Flovent Diskus] 50 mcg/actuation blister with device 1 inh INHALATION BID atorvastatin 80 mg tablet 80 mg PO DAILY potassium chloride 20 mEq tablet,ER particles/crystals 20 meq PO BID folic acid 1 mg tablet 1 mg PO DAILY furosemide 20 mg tablet 20 mg PO DAILY metoprolol succinate 25 mg tablet extended release 24 hr 25 mg PO DAILY ergocalciferol (vitamin D2) 1,250 mcg (50,000 unit) capsule 1,250 mcg PO DAILY dofetilide 500 mcg capsule 500 mcg PO BID liraglutide [Victoza 2-Hima] 0.6 mg/0.1 mL (18 mg/3 mL) pen injector 1.2 mg SUBCUT DAILY Eliquis 5 mg tablet 5 mg PO DAILY Entresto 49-51 mg tablet 1 tablet PO BID prednisone 20 mg tablet 20 mg PO DAILY 5 Days Qty: 5 0RF Follow-up/Referrals: Galen Morales M.D. [Primary Care Provider, Family Practice] Time of Disposition: 04:20
--- NOTE | 2025-02-25 22:37 | ECG_ITS ---
Test Date: 2025-02-25 22:16:08 Measurements Intervals Henderson Rate: 69 P: 0 MI: 0 QRS: 28 QRSD: 98 T: 44 QT: 400 QTc: 430 Interpretive Statements NORMAL SINUS RHYTHM WITH FIRST-DEGREE AV BLOCK LOW VOLTAGE ABNORMAL ECG No previous ECG available for comparison Electronically Signed On 02-26-2025 07:53:22 CDT by Rebel Navas M.D.
--- OUTSIDE RECORDS SUMMARY | 2025-02-25 22:40 | XMS_ITS | Encounter Summary ---
Author Organization [facility] Address [facility] [place] [address] Care Team Providers Care Customer Greeter Name Role Phone Galen Morales MD Primary Care Provider [phone] Imani Espitia MD Unavailable Joe Adair MD Unavailable [phone] Dorita Carter PA-C Unavailable [phone] Encounter Details Date Type Department Care Team (Late st Contact Info) Description 11/30/2023 Hospital Follow-up Call [facility] [address] [place] [address] Mady Morales RN Social History Tobacco Use Types Packs/Day Years Used Date Smoking Tobacco: Never Smokeless Tobacco: Never Alcohol Use Standard Drinks/Week Comments Not Currently 194.7 (1 standard drink = 0.6 oz pure alcohol) [facility] Utilities Answer Date Recorded In the past 12 months has [facility] [employer], gas, oil, or water [employer] threatened to shut off services in your [...] any time in the past 12 m [facility], were you homeless or living in a long-term (including now)? No 11/25/2023 Sex and Gender Information Value Date Recorded Sex Assigned at Male 07/20/2024 1:07 PM INTERDISCIPLINARY PROFESSOR Legal Sex Male 4:30 PM CDT Gender [...] st Contact Info) Description 04/18/2025 9:00 AM INTERDISCIPLINARY PROFESSOR Office Visit [facility] [address] [place] [phone] Imani Espitia MD [address] [place] [address] [phone] documented as of this encounter Visit Diagnoses Not on filedocumented in this encounter Care Teams Customer Greeter Relationship Specialty Start Date End Date Galen Morales MD [address] [place] [phone] PCP - General FAMILY PRACTICE 05/20/20 Imani Espitia MD [address] [place] [phone] Consulting Physician CARDIOVASCULAR DISEASE 06/21/20 Joe Adair MD [address] [place] [address] [phone] Consulting Physician CLINICAL CARDIAC ELECTROPHYSIOLOGY 11/29/23 Dorita Carter PA-C [address] [place] [phone] Referring Physician PHYSICIAN WEB PRESSMAN 11/29/23 documented as of this encounter
--- OUTSIDE RECORDS SUMMARY | 2025-02-25 22:40 | XMS_ITS | Encounter Summary ---
Author Organization [facility] Address [address] [place] [address] Phone Care Team Providers Care Typewriter Mechanic Name Role Phone Galen Morales MD Primary Care Provider [phone] Encounter Details Date Type Department Care Team [...] on filedocumented in this encounter Care Teams Typewriter Mechanic Relationship Specialty Start Date End Date Galen Morales MD [address] [place] [address] LORIN MUKHERJEE [id number] PCP - General Family Medicine 11/15/20 documented as of this encounter
--- OUTSIDE RECORDS SUMMARY | 2025-02-25 22:40 | XMS_ITS | Encounter Summary ---
Author Organization [facility] Address [facility] [place] [address] Care Team Providers Care Melter Clerk Name Role Phone Galen Morales MD Primary Care Provider [phone] Imani Espitia MD Unavailable Joe Adair MD Unavailable [phone] Dorita Carter PA-C Unavailable [phone] Encounter Details Date Type Department Care Team (Late st Contact Info) Description 12/13/2024 [employer] Message Enc [facility] [address] [place] [address] [facility] Provider Test results Social History Tobacco Use Types Packs/Day Years Used Date Smoking Tobacco: Never Smokeless Tobacco: Never Alcohol Use Standard Drinks/Week Comments Not Currently 194.7 (1 standard drink = 0.6 oz pure alcohol) [facility] Utilities Answer Date Recorded In the past 12 months has [facility] [employer] gas, oil, or water [employer] threatened to shut off services in your [...] time in the past 12 m [facility], were you homeless or living in a custodial (including now)? No 11/25/2023 Sex and Gender Information Value Date Recorded Sex Assigned at Male 07/20/2024 1:07 PM MAINTENANCE LEADER Legal Sex Male 4:30 PM CDT Gender [...] st Contact Info) Description 04/18/2025 9:00 AM MAINTENANCE LEADER Office Visit [facility] [address] [place] [phone] Imani Espitia MD [address] [place] [address] [phone] documented as of this encounter Visit Diagnoses Not on filedocumented in this encounter Care Teams Melter Clerk Relationship Specialty Start Date End Date Galen Morales MD [address] [place] [address] PCP - General FAMILY PRACTICE 05/20/20 Imani Espitia MD [address] [place] [address] [phone] Consulting Physician CARDIOVASCULAR DISEASE 06/21/20 Joe Adair MD [address] [place] [address] [phone] Consulting Physician CLINICAL CARDIAC ELECTROPHYSIOLOGY 11/29/23 Dorita Carter PA-C [address] [place] [phone] Referring Physician PHYSICIAN EYE SPECIALIST 11/29/23 documented as of this encounter
--- OUTSIDE RECORDS SUMMARY | 2025-02-25 22:40 | XMS_ITS | Encounter Summary ---
Author Organization [facility] Address [address] [place] [address] Phone Care Team Providers Care Technical Support Consultant Name Role Phone Galen Morales MD Primary Care Provider [phone] Encounter Details Date Type Department Care Team [...] on filedocumented in this encounter Care Teams Technical Support Consultant Relationship Specialty Start Date End Date Galen Morales MD [address] [place] [address] LOR[place] MUKHERJEE [id number] PCP - General Family Medicine 11/15/20 documented as of this encounter
--- OUTSIDE RECORDS SUMMARY | 2025-02-25 22:40 | XMS_ITS | Encounter Summary ---
Author Organization [facility] Address [address] [place] [address] Phone Care Team Providers Care Kennel Keeper Name Role Phone Galen Morales MD Primary Care Provider [phone] Encounter Details Date Type Department Care Team [...] on filedocumented in this encounter Care Teams Kennel Keeper Relationship Specialty Start Date End Date Galen Morales MD [address] [place] [address] LOR[place] MUKHERJEE [address] PCP - General Family Medicine 11/15/20 documented as of this encounter
--- OUTSIDE RECORDS SUMMARY | 2025-02-25 22:40 | XMS_ITS | Encounter Summary ---
Author Organization [facility] Address [address] [place] [address] Phone Care Team Providers Care German Professor Name Role Phone Galen Morales MD Primary Care Provider [phone] Encounter Details Date Type Department Care Team [...] on filedocumented in this encounter Care Teams German Professor Relationship Specialty Start Date End Date Galen Morales MD [address] [place] [address] LOR[place] MUKHERJEE [phone] PCP - General Family Medicine 11/15/20 documented as of this encounter
--- OUTSIDE RECORDS SUMMARY | 2025-02-25 22:40 | XMS_ITS | Encounter Summary ---
Author Organization [facility] Address [address] [place] [address] Care Team Providers Care Unit Clerk Name Role Phone Galen Morales MD Primary Care Provider [phone] Imani Espitia MD Unavailable Joe Adair MD Unavailable [phone] Dorita Carter PA-C Unavailable [phone] Encounter Details Date Type Department Care Team (Latest Contact Info) Description 11/30/2023 [employer] Message Enc [facility] [address] [place] [address] [facility] Provider hospital followup call Social History Tobacco Use Types Packs/Day Years Used Date Smoking Tobacco: Never Smokeless Tobacco: Never Alcohol Use Standard Drinks/Week Comments Not Currently 194.7 (1 standard drink = 0.6 oz pure alcohol) [facility] Utilities Answer Date Recorded In the past 12 months has [facility] [employer], gas, oil, or water [employer] threatened to shut off services in your [...] any time in the past 12 m [facility], were you homeless or living in a longterm (including now)? No 11/25/2023 Sex and Gender Information Value Date Recorded Sex Assigned at Male 07/20/2024 1:07 PM SECURITY SYSTEMS SPECIALIST Legal Sex Male 4:30 PM CDT [...] st Contact Info) Description 04/18/2025 9:00 AM SECURITY SYSTEMS SPECIALIST Office Visit [facility] [address] [place] [phone] Imani Espitia MD [address] [place] [address] [phone] documented as of this encounter Visit Diagnoses Not on filedocumented in this encounter Care Teams Unit Clerk Relationship Specialty Start Date End Date Galen Morales MD [address] [place] [address] PCP - General FAMILY PRACTICE 05/20/20 Imani Espitia MD [address] [place] [address] [phone] Consulting Physician CARDIOVASCULAR DISEASE 06/21/20 Joe Adair MD [address] [place] [address] [phone] Consulting Physician CLINICAL CARDIAC ELECTROPHYSIOLOGY 11/29/23 Dorita Carter PA-C [address] [place] [phone] Referring Physician PHYSICIAN MOTORCYCLE DELIVERY DRIVER 11/29/23 documented as of this encounter
--- OUTSIDE RECORDS SUMMARY | 2025-02-25 22:40 | XMS_ITS | Clinical Summary ---
Author Organization [facility] Address [address] [place] [address] Care Team Providers Care Unishear Operator Name Role Phone Galen Morales MD Primary Care Provider [phone] Imani Espitia MD Unavailable Joe Adair MD Unavailable [phone] Dorita Catrer PA-C Unavailable [phone] Allergies Active Allergy Reactions Criticality Noted [...] 09/18/2024 Lymphedema 03/16/2024 Atrial flutter, unspecified type ([facility]) 01/26/2024 HFrEF (heart failure with re duced ejection fraction) ([facility]) 04/11/2021 Obstructive sleep apnea syndrome 07/22/2020 History of alcoholism ([facility]) 07/22/19 21 Cardiomyopathy ([facility]) 07/16/2020 Orthopnea 07/16/2020 Edema 07/16/2020 Systolic heart failure ([facility]) 021 Moderate left ventricular systolic dysfunction 1 07/22/2019 Cardiac LV ejection fraction of 40-49% 0 Persistent atrial fibrillation ([facility]) 05/20/2020 Positive urine drug screen 05/20/2020 Morbid obesity 05/20/2020 Elevated brain natriuretic peptide (BNP) level 1 07/21/2019 Atrial fibrillation with rap id ventricular response ([facility]) 05/20/2020 Chronic alcohol use Resolved Problems Problem Noted Date Diagnosed Date Resolved Date A-fib ([facility]) 11/24/202310/13 Encounters Date Type Department Care Team Description 12/26/2024 Telephone [facility] [address] [place] [address] Joe Adair MD Medication 12/13/2024 MyCharmirela Message Enc [facility] [address] [place] [address] [facility] Provider Test results 12/11/2024 10:00 AM CDT - 12/11/2024 11:59 PM CDT Hospital Encounter [facility] [address] [place] [address] Imani Espitia MD Discharge Disposition: Home or [...] standard drink = 0.6 oz pure alcohol) [facility] Utilities Answer Date Recorded In the [...] time in the past 12 m [facility], were you homeless or living in a jail (including now)? No 11/25/2023 Sex and Gender Information Value Date Recorded Sex Assigned at Male 07/20/2024 1:07 PM GUEST ADVISOR Legal Sex Male 4:30 PM CDT Gender [...] st Contact Info) Description 04/18/2025 9:00 AM GUEST ADVISOR Office Visit [facility] [place] [address] Imani Espitia MD [address] [place] [address] Health Maintenance Due Date Last [...] 10 :55 AM CDT Persistent atrial fibrillation ([facility]) from Last 3 Months Results * USE ECHOCARDIOGRAM (12/11/2024 10:55 AM CDT) Anatomical Region Laterality Modality Cardiac Ultrasound 12/11/2024 10:1 4 AM CDT Narrative 12/13/2024 8:49 AM CDT Echocardiography Report Pat.Name: Chandler Ordoñez Pat.ID: [id number] .Date: 12/11/2024 Refer.MD: Rere, [facility] Exam Time: 10:14:00 AM Study Type:[facility] Height: 74 in Weight: 480 lb BSA: 3.15 m2 Age: 9 1985,39Y Sex: M Sonogrphr: Nelida Pat. Stat.:Outpatient Reason for Study:Persistent atrial fibrillation, MR Procedures: Study performed at [facility], [place], [place] and interpreted by [facility]. 2D, M-mode, Doppler, Color Flow, [...] 12/13/2024 Echocardiography Report Pat.Name: Chandler Ordoñez Pat.ID: [id number] .Date: 12/11/2024 Refer.MD: Rere, [facility] Exam Time: 10:14:00 AM Study Type:[facility] Height: 74 in Weight: 480 lb BSA: 3.15 m2 Age: 9 1985,39Y Sex: M Sonogrphr: Sf Pat. Stat.:Outpatient Reason for Study:Persistent atrial fibrillation, MR Procedures: Study performed at [facility], [place], [place] and interpreted by [facility]. 2D, M-mode, Doppler, Color Flow, [...] 11:14 AM 05/23/2020 3:14 PM Care Teams Unishear Operator Relationship Specialty Start Date End Date Galen Morales MD [address] [place] [address] PCP - General FAMILY PRACTICE 05/20/20 Imani Espitia MD [address] [place], [place] [phone] Consulting Physician CARDIOVASCULAR DISEASE 06/21/20 Joe Adair MD [address] [place] [phone] Consulting Physician CLINICAL CARDIAC ELECTROPHYSIOLOGY 11/29/23 Dorita Carter PA-C [address] [place], [place] [address] Referring Physician PHYSICIAN SECOND CHEF 11/29/23
--- OUTSIDE RECORDS SUMMARY | 2025-02-25 22:40 | XMS_ITS | Encounter Summary ---
Author Organization [facility] Address [facility] [place] [address] Care Team Providers Care Car Spotter Name Role Phone Galen Morales MD Primary Care Provider Imani Espitia MD Unavailable Imani Espitia MD Unavailable Joe Adair MD Unavailable [phone] Dorita Carter PA-C Unavailable [phone] Encounter Details Date Type Department Care Team (Late st Contact Info) Description 11/19/2018 Abstract [facility] [address] [place], [place] [id number] , Generic ConversionMD Social History Tobacco Use Types Packs/Day Years Used Date Smoking Tobacco: Never Assessed Sex and Gender Information Value Date Recorded Sex Assigned at Male 07/20/2024 1:07 PM RN TRANSPLANT Legal Sex Male 4:30 PM CDT Gender Identity Not on file Sexual Orientation Not on file documented as of this encounter Plan of Treatment Upcoming Encounters Date Type Department Care Team (Late st Contact Info) Description 04/18/2025 9:00 AM RN TRANSPLANT Office Visit [facility] [address] [place] [address] Imani Espitia MD [address] [place] [address] documented as of this encounter Visit Diagnoses Not on filedocumented in this encounter Additional Health Concerns Infection Onset Date Last Indicated Resolved Time COVID-19 Rule Out 07/06/2020 07/06/2020 07/07/2020 3:02 PM RN TRANSPLANT documented as of this encounter Care Teams Car Spotter Relationship Specialty Start Date End Date Galen Morales MD [address] [facility] [place] [address] PCP - General FAMILY PRACTICE 05/20/20 Imani Espitia MD [address] [place] [address] Consulting Physician CARDIOVASCULAR DISEASE 05/23/20 1 07/24/19 Imani Espitia MD [address] [place] [address] Consulting Physician CARDIOVASCULAR DISEASE 06/21/20 Joe Adair MD [address] [place] [phone] Consulting Physician CLINICAL CARDIAC ELECTROPHYSIOLOGY 11/29/23 Dorita Carter PA-C [address] [place], [place] [address] Referring Physician PHYSICIAN MECHANICAL INTEGRITY SPECIALIST 11/29/23 documented as of this encounter
--- OUTSIDE RECORDS SUMMARY | 2025-02-25 22:40 | XMS_ITS | Clinical Summary ---
Author Organization [place] [id number] Address [address] [place] [address] Care Team Providers Care Warehouse Operator Name Role Phone Galen Morales MD Primary Care Provider [phone] Allergies Active Allergy Reactions Criticality Noted Date [...] patient's age to complete this topic Insurance [facility] Advance Directives For more information, please contact: [phone] * Full Code (Latest Code Status on File) Date Activated Date Inactivated Comments 11/04/2022 12:13 AM 11/08/2022 8:46 PM Care Teams Warehouse Operator Relationship Specialty Start Date End Date Galen Morales MD [address] [place] [address] [place] [address] PCP - General Family Medicine 11/15/20
--- OUTSIDE RECORDS SUMMARY | 2025-02-25 22:40 | XMS_ITS | Encounter Summary ---
Author Organization [facility] Address [facility] [place] [address] Care Team Providers Care Probation Supervisor Name Role Phone Galen Morales MD Primary Care Provider [phone] Imani Espitia MD Unavailable Joe Adair MD Unavailable [phone] Dorita Carter PA-C Unavailable [phone] Reason for Visit * Reason Onset Date Comments Holter Monitor 12/24/2023 Encounter Details Date Type Department Care Team (Late st Contact Info) Description 12/24/2023 Telephone [facility] [address] [place] [address] Joe Adair MD [address] [place] [address] Holter Monitor Social History Tobacco Use Types Packs/Day Years Used Date Smoking Tobacco: Never Smokeless Tobacco: Never Alcohol Use Standard Drinks/Week Comments Not Currently 194.7 (1 standard drink = 0.6 oz pure alcohol) [facility] Utilities Answer Date Recorded In the past 12 months has [facility] electric, gas, oil, or water company threatened [...] any time in the past 12 m [facility], were you homeless or living in a longterm (including now)? No 11/25/2023 Sex and Gender Information Value Date Recorded Sex Assigned at Male 07/20/2024 1:07 PM SALESFORCE DEVELOPER Legal Sex Male 4:30 PM CDT Gender [...] documented in this encounter Progress Notes * Shanw Mcphersonician - 12/24/2023 12:14 PM CDT Images from the original note were not included. Tiggly alerted us to two different events for the patient. Patient had a run of Atrial/ supraventricular tachycardia and a run of Ventricular tachycardia. No symptoms reported for either event. documented in this encounter Plan of Treatment Upcoming Encounters Date Type Department Care Team (Late st Contact Info) Description 04/18/2025 9:00 AM SALESFORCE DEVELOPER Office Visit [facility] [address] [place] [address] Imani Espitia MD [address] [place] [address] documented as of this encounter Visit Diagnoses Not on filedocumented in this encounter Care Teams Probation Supervisor Relationship Specialty Start Date End Date Galen Morales MD [address] [place] [phone] PCP - General FAMILY PRACTICE 05/20/20 Imani Espitia MD [address] [place], [place] [address] Consulting Physician CARDIOVASCULAR DISEASE 06/21/20 Jeo Adair MD [address] [place] [address] Consulting Physician CLINICAL CARDIAC ELECTROPHYSIOLOGY 11/29/23 Dorita Carter PA-C [address] [place], [place] [address] Referring Physician PHYSICIAN LOGGING TRUCK DRIVER 11/29/23 documented as of this encounter
--- OUTSIDE RECORDS SUMMARY | 2025-02-25 22:40 | XMS_ITS | Clinical Summary ---
Author Organization [facility] [employer] Address [address] [place] [address] Care Team Providers Care County Surveyor Name Role Phone Galen Morales MD Primary Care Provider Source Comments [facility] [employer],non-owned Affiliates and Associated Physician Practices is amultiple site organization consisting of ambulatory clinics and hospital sitesin [place], [place], [place] and [place]. This disclosure is being madepursuant to the Care Everywhere program and may not contain all information available regarding this patient. Last updated 18.[facility] [employer] Allergies No known active allergies Medications * [...] to complete this topic Insurance [facility] Advance Directives * Full Code (Latest Code Status on File) Date Activated Date Inactivated Comments 10/22/2023 2:52 PM 10/26/2023 3:27 PM Care Teams County Surveyor Relationship Specialty Start Date End Date Galen Morales MD [address] [place] [address] PCP - General Family Medicine 10/26/23
--- OUTSIDE RECORDS SUMMARY | 2025-02-25 22:40 | XMS_ITS | Encounter Summary ---
Author Organization [facility] Address [address] [place] [address] Phone Care Team Providers Care Rating Officer Name Role Phone Galen Morales MD Primary Care Provider [phone] Encounter Details Date Type Department Care Team [...] on filedocumented in this encounter Care Teams Rating Officer Relationship Specialty Start Date End Date Galen Morales MD [address] [facility] [place] [address] PCP - General Family Medicine 11/15/20 documented as of this encounter
--- OUTSIDE RECORDS SUMMARY | 2025-02-25 22:40 | XMS_ITS | Encounter Summary ---
Author Organization [facility] Address [address] [place] [address] Phone Care Team Providers Care Can Crimper Name Role Phone Galen Morales MD Primary Care Provider [phone]- [phone] Encounter Details Date Type Department Care Team [...] on filedocumented in this encounter Care Teams Can Crimper Relationship Specialty Start Date End Date Galen Morales MD [address] [facility] [place] [address] PCP - General Family Medicine 11/15/20 documented as of this encounter
--- OUTSIDE RECORDS SUMMARY | 2025-02-25 22:40 | XMS_ITS | Encounter Summary ---
Author Organization [facility] Address [address] [place] [address] Phone Care Team Providers Care Ict Help Desk Officer Name Role Phone Galen Morales MD Primary Care Provider [phone] Encounter Details Date Type Department Care Team [...] on filedocumented in this encounter Care Teams Ict Help Desk Officer Relationship Specialty Start Date End Date Galen Morales MD [address] [facility] [place] [address] PCP - General Family Medicine 11/15/20 documented as of this encounter
--- OUTSIDE RECORDS SUMMARY | 2025-02-25 22:40 | XMS_ITS | Encounter Summary ---
Author Organization [facility] Address [address] [place] [address] Phone Care Team Providers Care Funeral Limousine Driver Name Role Phone Galen Morales MD Primary Care Provider [phone]- [phone] Encounter Details Date Type Department Care Team [...] on filedocumented in this encounter Care Teams Funeral Limousine Driver Relationship Specialty Start Date End Date Galen Morales MD [address] [place] [address] [place] [address] PCP - General Family Medicine 11/15/20 documented as of this encounter
[2025-02-25 23:21] LABS: Hematocrit 42.0 % (40.0-54.0); Hemoglobin 13.3 g/dL (14.0-18.0); Immature Granulocyte Percent A 0.5 % (0.0-0.0); Lymphocytes Absolute Auto 1.58 K/mm3 (1.10-4.50); Mean Corpuscular HGB Conc 31.7 g/dL (32-36); Mean Corpuscular Hemoglobin 29.2 pg (27.0-31.0); Mean Corpuscular Volume 92.1 fL (78.0-102.0); Nucleated Red Blood Cells Absolute Auto 0.00 K/mm3 (0.00-0.00); Nucleated Red Blood Cells Perc 0.0 % (0-0.0); Platelet Count Result 203 K/mm3 (150-420); Red Blood Count 4.56 M/mm3 (4.70-6.10); White Blood Count 5.8 K/mm3 (4.8-10.8)
[2025-02-25 23:30] LABS: Alanine Aminotransferase 18 U/L (6-50); Albumin Level 4.2 g/dL (3.5-5.1); Alkaline Phosphatase 65 U/L (38-126); Anion Gap 9 mmol/L (4-12); Aspartate Amino Transferase 22 U/L (17-59); Bilirubin,Total 0.6 mg/dL (0.2-1.3); Blood Urea Nitrogen 12 mg/dL (9-20); Calcium 9.2 mg/dL (8.4-10.2); Carbon Dioxide 30 mmol/L (22-30); Chloride 102 mmol/L (98-107); Estimated CRCL calculation 158 ml/min; Estimated Glomerular Filt Rate > 60; Glucose 101 mg/dL (65-110); Magnesium 2.1 mg/dL (1.6-2.3); Osmolality Calculated 291 mOsm/kg (285-295); Potassium 3.8 mmol/L (3.4-5.0); Sodium 141 mmol/L (137-145); Total Protein 8.5 g/dL (6.3-8.2)
[2025-02-25 23:38] LABS: NT Pro B Type Natriuretic Pept 54 pg/mL (19.9-100)
[2025-02-26] VITALS (31 sets, daily range): BP systolic 129–146; BP diastolic 65–74; PULSE 61–76; RESP 14–30; O2SAT 90–100
--- NOTE | 2025-02-26 01:00 | ECG_ITS ---
Test Date: 2025-02-26 00:59:29 Measurements Intervals [place] Rate: 71 P: 3 AK: 188 QRS: 12 QRSD: 102 T: 21 QT: 427 QTc: 467 Interpretive Statements SINUS RHYTHM LOW QRS VOLTAGE IN PRECORDIAL LEADS [QRS DEFLECTION < 1.0 mV IN CHEST LEADS] ABNORMAL ECG No previous ECG available for comparison Electronically Signed On 02-26-2025 07:53:41 CDT by Rebel Navas M.D.
--- NOTE | 2025-02-26 04:00 | ECG_ITS ---
Test Date: 2025-02-26 04:08:43 Measurements Intervals [place] Rate: 68 P: 22 OH: 219 QRS: 14 QRSD: 100 T: 19 QT: 414 QTc: 442 Interpretive Statements SINUS RHYTHM WITH FIRST DEGREE AV BLOCK LOW QRS VOLTAGE IN PRECORDIAL LEADS [QRS DEFLECTION < 1.0 mV IN CHEST LEADS] ABNORMAL ECG Compared to ECG 02/26/2025 00:59:29 First degree AV block now present Electronically Signed On 02-26-2025 07:53:54 CDT by Rebel Navas M.D.
== END 2025-02-26 04:38 | disposition home or self-care (01) ==
PROVIDERS: Emergency Provider Internal Medicine Critical Care Medicine; PCP Family Medicine
DX: I11.0 Hypertensive heart disease with heart failure (principal); I50.22 Chronic systolic (congestive) heart failure; T46.2X1A Poisoning by other antidysrhythmic drugs, accidental (unintentional), initial encounter; E11.9 Type 2 diabetes mellitus without complications; I48.91 Unspecified atrial fibrillation; Z79.01 Long term (current) use of anticoagulants
CPT/HCPCS: 36415; 80053; 83735; 83880; 85025; 93005; 99284